=== PATIENT | female | born 1945 | race African-American/Black ===

== ENCOUNTER 2018-05-26 13:18 | Inpatient (IN) | payer OTHER ==
[~2018-05-26] VITALS: Ht 182.9 cm; Wt 81.7 kg
--- NOTE | ~2018-05-26 | EKG ---
[place] [address] [facility] [place] [address] ELECTROCARDIOGRAM REPORT Name: JAM PARK Room #: 170-12 ADM IN M.R.#: [id number] Admission: 05/26/18 Attend Phys: Getachew Mcguire MD Discharge: Date of : 41 Report #: [id number] THIS REPORT FOR: //name// [facility] ED Test Date: 2018-05-26 Test Time: 14:10:35 Pat Name: JAM PARK Department: Room: Gender: F Field Application Engineer: MICHAEL : 1945 Requested By: John Sellers Order Number: [id number] MD: Minh Lopez Measurements Intervals Portal Rate: 88 P: 50 AL: 132 QRS: -9 QRSD: 91 T: 132 QT: 363 QTc: 440 Interpretive Statements Sinus rhythm Atrial premature complexes LVH with secondary repolarization abnormality Anterior ST elevation, probably due to LVH No previous ECG available for comparison Electronically Signed On 05-26-2018 17:09:50 CDT by Minh Lopez [email or web address] <ELECTRONICALLY SIGNED> By: Minh Lopez MD, [facility] 05/26/18 1709 1410 1410 Minh Lopez MD, [facility] /EPI
--- NOTE | ~2018-05-26 | 2DMMODE ---
[facility] [address] [place] [address] 2 D/M-MODE ECHOCARDIOGRAM Name: JAM PARKERI Room #: 420-P [facility] IN M.R.#: [id number] Admission: 05/26/18 Attend Phys: Getachew Mcguire, Discharge: Date of : 41 Date of Service: 05/27/18 1057 Report #: [id number] THIS REPORT FOR: //name// APPROVED REPORT Study performed: 05/27/2018 10:08:31 EXAM: Comprehensive 2D, Doppler, and color-flow Echocardiogram Patient Location: Bedside Room #: 420 Status: routine BSA: 1.93 HR: 89 bpm BP: 143/82 mmHg Rhythm: Sinus arrhythmia Other Information Study Quality: Good Indications Murmur. Hx: DM, HTN 2D Dimensions RVDd: 37.52 mm LVEF(%): 58.75 (>50%) IVSd: 16.18 (7-11mm) LVOT Diam: 19.95 (18-24mm) LVDd: 36.50 mm PWd: 10.12 (7-11mm) Ascending Ao: 34.96 (22-36mm) LVDs: 25.39 (25-40mm) Aortic Root: 28.78 mm Pacheco's LVEF: 58.75 % Volumes Left Atrial Volume (Systole) Single Plane 4CH: 57.32 mL Single Plane 2CH: 66.43 mL LA ESV Index: 35.00 mL/m2 Aortic Valve AoV Peak Caden.: 3.82 m/s AO Peak Gr.: 58.49 mmHg LVOT Max P.07 mmHg AO Mean Gr.: 36.39 mmHg AO V2 Mean: 2.90 m/s LVOT Max V: 1.33 m/s AO V2 VTI: 77.24 cm GINA Vmax: 1.09 cm2 Mitral Valve [facility] [place] [address] 2 D/M-MODE ECHOCARDIOGRAM Name: JAM PARK KLAUS Room #: 420-P [facility].#: [id number] Admission: 05/26/18 Attend Phys: Getachew Mcguire, Discharge: Date of : 41 Date of Service: 05/27/18 1057 Report #: [id number] E/A Ratio: 0.8 MV Decel. Time: 216.78 ms MV E Max Caden.: 1.00 m/s MV A Caden.: 1.20 m/s MV PHT: 62.87 ms IVRT: 64.59 ms Pulmonary Valve PV Peak Caden.: 0.82 m/s PV Peak Gr.: 2.70 mmHg Pulmonary Vein P Vein S: 0.39 m/s P Vein A: 0.38 m/s P Vein D: 0.28 m/s P Vein A Dur.: 96.9 msec P Vein S/D Ratio: 1.39 Tricuspid Valve TR Peak Caden.: 3.18 m/s RAP Estimate: 5.00 mmHg TR Peak Gr.: 40.52 mmHg PA Pressure: 46.00 mmHg Left Ventricle The left ventricle is normal size. There is normal LV segmental wall motion. Mild to moderate left ventricular hypertrophy. Left ventricular systolic function is hyperdynamic. LVEF is 65-70%. Mild diastolic dysfunction is present (impaired relaxation pattern). Right Ventricle The right ventricle is normal size. The right ventricular systolic function is normal. Atria Left atrium is mildly dilated. Right atrium is mildly dilated. Aortic Valve Aortic valve is moderately calcified. Mild aortic regurgitation. There is moderate to severe valvular aortic stenosis. Calculated aortic valve area is 1.1 cm2 with maximum pressure gradient of 58 mmHg and mean pressure gradient of 34 mmHg. Mitral Valve Mitral valve leaflets are mildly thickened. Trace mitral regurgitation. No evidence of mitral valve stenosis. Tricuspid Valve [facility] [address] [place] [address] 2 D/M-MODE ECHOCARDIOGRAM Name: JAM PARKERI Room #: 420-P [facility] IN ..#: [id number] Admission: 05/26/18 Attend Phys: Getachew Mcguire, Discharge: Date of : 41 Date of Service: 05/27/18 1057 Report #: [id number] The tricuspid valve is normal in structure. Mild tricuspid regurgitation. Moderate pulmonary hypertension with an estimated PAP is 45-50mmHg. Pulmonic Valve The pulmonary valve is normal in structure. There is no pulmonic valvular regurgitation. Great Vessels The aortic root is normal in size. The ascending aorta is normal in size. IVC is normal in size and collapses >50% with inspiration. Pericardium There is no pericardial effusion. <Conclusion> The left ventricle is normal size. LVEF is 65-70%. Left atrium is mildly dilated. Right atrium is mildly dilated. Aortic valve is moderately calcified. Mild aortic regurgitation. There is moderate to severe valvular aortic stenosis. Calculated aortic valve area is 1.1 cm2 with maximum pressure gradient of 58 mmHg and mean pressure gradient of 34 mmHg. Mitral valve leaflets are mildly thickened. Trace mitral regurgitation. The tricuspid valve is normal in structure. Mild tricuspid regurgitation. Moderate pulmonary hypertension with an estimated PAP is 45-50mmHg. The pulmonary valve is normal in structure. There is no pericardial effusion. <ELECTRONICALLY SIGNED> By: Daniele Lindo MD 05/27/18 1057 1057 1057 Daniele Lindo MD /INF
[2018-05-26 13:19] VITALS: BP 126/62
[2018-05-26 14:00] LABS: URINE BILIRUBIN NEGATIVE (Negative); URINE BLOOD 1+ (Negative); URINE CLARITY CLOUDY; URINE COLOR YELLOW; URINE GLUCOSE-RANDOM* 3+ (Negative); URINE KETONES 1+ (Negative); URINE NITRITE-REFLEX NEGATIVE (Negative); URINE PROTEIN (DIPSTICK) 1+ (Negative); URINE UROBILINOGEN 0.2 E.U./dl (0.2-1.0)
[2018-05-26 14:02] LABS: URINE LEUKOCYTES-REFLEX 1+ (Negative)
[2018-05-26 14:08] LABS: BACTERIA-REFLEX >30 Many /HPF (None Seen); CASTS None Seen /LPF (None Seen); CRYSTALS None Seen /LPF (None Seen); SQUAMOUS 0-3 Few /LPF (0-3); URINE RBC 0-2 Rare /HPF (0-2)
[2018-05-26 14:22] LABS: ABSOLUTE NEUTROPHILS 14.2 thou/uL (1.4-8.2); BASOPHILS 0.2 % (0.0-2.0); HEMATOCRIT 38.4 % (37.0-47.0); HEMOGLOBIN 12.9 gm/dL (12.0-15.0); LYMPHOCYTES 5.3 % (24.0-44.0); MCH 26.4 pg (26.0-34.0); MCHC 33.6 g/dL (28.0-37.0); MCV 78.7 fL (80.0-100.0); MONOCYTES 8.8 % (1.0-8.0); PLATELET COUNT 217 thou/uL (150-400); POLYS 85.7 % (36.0-66.0); RBC 4.88 mil/uL (4.20-5.00); RDW 13.6 % (10.5-14.5); WBC 16.6 thou/uL (4.0-11.0)
[2018-05-26 14:31] LABS: CALCIUM 9.3 mg/dL (8.5-10.1); CREATININE 1.2 mg/dL (0.6-1.0); POTASSIUM 3.5 mmol/L (3.5-5.1)
[2018-05-26 14:37] LABS: ALBUMIN 2.6 g/dL (3.4-5.0); DIRECT BILIRUBIN 0.1 mg/dL (<0.1-0.3); TOTAL BILIRUBIN 0.4 mg/dL (<0.1-1.0); TOTAL PROTEIN 8.4 g/dL (6.4-8.2)
[2018-05-26] MEDS ORDERED: METFORMIN HCL500 MG PO (15:56)
[2018-05-26] MEDS ORDERED: COZAAR 25 MG TA25 M1 PO (15:56)
[2018-05-26] MEDS ORDERED: HYDROCHLOROTH12.5 M1 PO (15:56)
[2018-05-26 16:29] VITALS: BP 126/62
[2018-05-26 16:30] VITALS: BP 150/65
[2018-05-26 16:56] LABS: CALCIUM 8.8 mg/dL (8.5-10.1)
[2018-05-26 17:01] VITALS: BP 134/79
[2018-05-26 17:01] LABS: % SATURATION 7 % (20-39); IRON 12 ug/dL (50-170); TIBC 172 ug/dL (250-450)
[2018-05-26 17:02] LABS: ALBUMIN 2.1 g/dL (3.4-5.0); TOTAL PROTEIN 7.5 g/dL (6.4-8.2)
[2018-05-26 17:26] LABS: TSH 1.498 uIU/mL (0.358-3.740)
[2018-05-26 18:02] VITALS: BP 140/74
[2018-05-26 19:22] VITALS: BP 150/65
[2018-05-26 23:25] LABS: CALCIUM 8.8 mg/dL (8.5-10.1); POTASSIUM 3.4 mmol/L (3.5-5.1)
[2018-05-27 03:10] VITALS: BP 147/74
[2018-05-27 05:17] LABS: HEMATOCRIT 34.4 % (37.0-47.0); HEMOGLOBIN 11.5 gm/dL (12.0-15.0); MCH 26.1 pg (26.0-34.0); MCHC 33.6 g/dL (28.0-37.0); MCV 77.8 fL (80.0-100.0); RBC 4.42 mil/uL (4.20-5.00); RDW 13.4 % (10.5-14.5); WBC 16.4 thou/uL (4.0-11.0)
[2018-05-27 05:28] LABS: CALCIUM 8.6 mg/dL (8.5-10.1); CREATININE 1.1 mg/dL (0.6-1.0); MAGNESIUM 1.5 mg/dL (1.8-2.4); POTASSIUM 3.4 mmol/L (3.5-5.1)
[2018-05-27 06:08] LABS: GLYCOHEMOGLOBIN (HGB A1C) 9.9 % (4.8-5.6)
[2018-05-27 08:30] VITALS: BP 143/82
[2018-05-27 16:35] VITALS: BP 136/97
[2018-05-27 19:32] VITALS: BP 127/64
[2018-05-28 04:10] VITALS: BP 119/72
[2018-05-28 05:56] LABS: HEMOGLOBIN 11.1 gm/dL (12.0-15.0); MCH 26.5 pg (26.0-34.0); MCHC 33.7 g/dL (28.0-37.0); MCV 78.5 fL (80.0-100.0); RBC 4.2 mil/uL (4.20-5.00); RDW 13.9 % (10.5-14.5); WBC 14.1 thou/uL (4.0-11.0)
[2018-05-28 06:13] LABS: ALBUMIN 1.9 g/dL (3.4-5.0); CALCIUM 8.5 mg/dL (8.5-10.1); CREATININE 0.9 mg/dL (0.6-1.0); PHOSPHORUS 2.2 mg/dL (2.5-4.9); POTASSIUM 3.5 mmol/L (3.5-5.1)
[2018-05-28 08:14] VITALS: BP 127/63
[2018-05-28 10:58] VITALS: BP 127/63
[2018-05-28 16:25] VITALS: BP 132/58
[2018-05-28 20:09] VITALS: BP 124/65
[2018-05-29 05:03] VITALS: BP 140/65
[2018-05-29 06:17] LABS: HEMOGLOBIN 11.3 gm/dL (12.0-15.0); MCHC 33.2 g/dL (28.0-37.0); MCV 78.3 fL (80.0-100.0); RBC 4.34 mil/uL (4.20-5.00); RDW 13.8 % (10.5-14.5); WBC 12.9 thou/uL (4.0-11.0)
[2018-05-29 06:39] LABS: CALCIUM 8.5 mg/dL (8.5-10.1); CREATININE 0.8 mg/dL (0.6-1.0); MAGNESIUM 1.8 mg/dL (1.8-2.4); POTASSIUM 3.5 mmol/L (3.5-5.1)
[2018-05-29 07:32] VITALS: BP 134/72
[2018-05-29 15:27] VITALS: BP 117/57
[2018-05-29 19:20] VITALS: BP 114/48
[2018-05-30 04:10] VITALS: BP 127/65
[2018-05-30 05:49] LABS: HEMATOCRIT 32.4 % (37.0-47.0); HEMOGLOBIN 10.7 gm/dL (12.0-15.0); MCH 25.7 pg (26.0-34.0); MCHC 33.1 g/dL (28.0-37.0); MCV 77.7 fL (80.0-100.0); RBC 4.17 mil/uL (4.20-5.00); RDW 14.4 % (10.5-14.5); WBC 13.6 thou/uL (4.0-11.0)
[2018-05-30 05:55] LABS: ALBUMIN 1.6 g/dL (3.4-5.0); CALCIUM 8.3 mg/dL (8.5-10.1); CREATININE 0.7 mg/dL (0.6-1.0); PHOSPHORUS 3.4 mg/dL (2.5-4.9); POTASSIUM 3.8 mmol/L (3.5-5.1)
[2018-05-30 07:41] VITALS: BP 150/68
[2018-05-30 19:45] VITALS: BP 136/75
[2018-05-31 04:20] VITALS: BP 136/65
[2018-05-31 08:00] VITALS: BP 147/66
[2018-05-31] MEDS ORDERED: CIPRO500 MG PO (09:11)
[2018-05-31] MEDS ORDERED: LISINOPRIL5 MG PO (09:11)
[2018-05-31] MEDS ORDERED: ASPIRIN325 PO (09:12)
[2018-05-31] MEDS ORDERED: PEPCID20 MG PO (09:12)
[2018-05-31] MEDS ORDERED: GLUCOPHAGE500 MG PO (09:12)
[2018-05-31] MEDS ORDERED: GLYBURIDE 5 MG T5 M1 PO (09:12)
[2018-05-31] MEDS ORDERED: TOPROL XL100 MG PO (09:16)
[2018-05-31 09:52] VITALS: BP 147/66
== END 2018-05-31 11:52 | disposition home or self-care (01) | DRG 872 ==
LOC: ER 13:18 → EROBS 15:18 → 4E 15:18 → ENTRNSPT 05-31 10:52 → 4E 05-31 11:52
PROVIDERS: Emergency Medicine; Hospitalist; Internal Medicine; Nurse Practitioner Acute Care
DX: A41.9 Sepsis, unspecified organism (principal); N17.9 Acute kidney failure, unspecified; E87.1 Hypo-osmolality and hyponatremia; E44.0 Moderate protein-calorie malnutrition; N10 Acute pyelonephritis; I35.0 Nonrheumatic aortic (valve) stenosis; E11.22 Type 2 diabetes mellitus with diabetic chronic kidney disease; K59.00 Constipation, unspecified; E11.649 Type 2 diabetes mellitus with hypoglycemia without coma; I09.9 Rheumatic heart disease, unspecified; I12.9 Hypertensive chronic kidney disease with stage 1 through stage 4 chronic kidney disease, or unspecified chronic kidney disease; N18.9 Chronic kidney disease, unspecified; Z79.84 Long term (current) use of oral hypoglycemic drugs; Z88.0 Allergy status to penicillin; Z68.24 Body mass index [BMI] 24.0-24.9, adult
CPT/HCPCS: 10183

== ENCOUNTER 2018-06-30 11:10 | Emergency (ER) | payer OTHER ==
[~2018-06-30] VITALS: Ht 170.2 cm; Wt 86.2 kg
--- NOTE | ~2018-06-30 | EKG ---
[place] [address] [facility] [place] [address] ELECTROCARDIOGRAM REPORT Name: JAM PARK Room #: [facility]#: [id number] Admission: 06/30/18 Attend Phys: Discharge: 06/30/18 Date of : 41 Report #: [id number] THIS REPORT FOR: //name// [facility] [place] [place] ED Test Date: 2018-06-30 Test Time: 11:42:52 Pat Name: JAM PARK Department: Room: Gender: F Signal Helper: : 1945 Requested By: John Sellers Order Number: [id number] MD: Minh Lopez Measurements Intervals [place] Rate: 73 P: 49 PA: 142 QRS: -8 QRSD: 88 T: -7 QT: 382 QTc: 421 Interpretive Statements Sinus rhythm Left ventricular hypertrophy Anterior Q waves, possibly due to LVH Borderline T abnormalities Compared to ECG 05/26/2018 14:10:[address] and T wave abnormality less pronounced Atrial premature complex(es) no longer present Electronically Signed On 06-30-2018 16:59:53 CDT by Minh Lopez [email or web address] <ELECTRONICALLY SIGNED> By: Minh Lopez MD, [facility] 06/30/18 1659 1142 1142 Minh Lopez MD, [facility] /EPI
[~2018-06-30 11:10] MED LIST: ASPIRIN325 PO; CIPRO500 MG PO; COZAAR 25 MG TA25 M1 PO; GLUCOPHAGE500 MG PO; GLYBURIDE 5 MG T5 M1 PO; HYDROCHLOROTH12.5 M1 PO; LISINOPRIL5 MG PO; METFORMIN HCL500 MG PO; PEPCID20 MG PO; TOPROL XL100 MG PO
[2018-06-30 11:55] LABS: ABSOLUTE NEUTROPHILS 7.8 thou/uL (1.4-8.2); BASOPHILS 0.5 % (0.0-2.0); EOSINOPHILS 0.3 % (0.0-3.0); HEMATOCRIT 36.8 % (37.0-47.0); HEMOGLOBIN 12.1 gm/dL (12.0-15.0); LYMPHOCYTES 14.7 % (24.0-44.0); MCV 78.9 fL (80.0-100.0); MONOCYTES 9.6 % (1.0-8.0); PLATELET COUNT 231 thou/uL (150-400); POLYS 74.9 % (36.0-66.0); RBC 4.66 mil/uL (4.20-5.00); WBC 10.4 thou/uL (4.0-11.0)
[2018-06-30 11:57] LABS: ANION GAP 10 mmol/L (7-16); BUN 9 mg/dL (7-18); CALCIUM 9.1 mg/dL (8.5-10.1); CHLORIDE 93 mmol/L (98-107); CO2 23 mmol/L (21-32); GLUCOSE 481 mg/dL (74-106); POTASSIUM 4.2 mmol/L (3.5-5.1); SODIUM 126 mmol/L (136-145)
[2018-06-30 12:06] LABS: ALBUMIN 2.9 g/dL (3.4-5.0); LIPASE 55 U/L (73-393); SGOT 19 U/L (15-37); SGPT 28 U/L (30-65); TOTAL BILIRUBIN 0.4 mg/dL (<0.1-1.0); TOTAL PROTEIN 8.3 g/dL (6.4-8.2); TROPONIN-I <0.06 ng/mL (<0.06)
[2018-06-30 12:19] LABS: BE(vivo) -1.4 mmol/L (-2 to +3); HCO3 23.8 mmol/L (22.0-26.0); PCO2 VENOUS 41.5 mmHg (41.0-51.0); PO2 VENOUS 48.7 mmHg (35.0-45.0)
[2018-06-30 13:28] LABS: URINE CLARITY CLOUDY; URINE COLOR YELLOW
[2018-06-30 13:29] LABS: URINE GLUCOSE-RANDOM* 2+ (Negative); URINE PROTEIN (DIPSTICK) 1+ (Negative)
[2018-06-30 13:30] LABS: URINE BILIRUBIN NEGATIVE (Negative); URINE BLOOD 2+ (Negative); URINE KETONES NEGATIVE (Negative); URINE LEUKOCYTES-REFLEX 2+ (Negative); URINE NITRITE-REFLEX NEGATIVE (Negative); URINE UROBILINOGEN 0.2 E.U./dl (0.2-1.0)
[2018-06-30 13:40] LABS: BACTERIA-REFLEX 1-9 Few /HPF (None Seen); CASTS None Seen /LPF (None Seen); CRYSTALS None Seen /LPF (None Seen); SQUAMOUS None Seen /LPF (0-3); URINE RBC 0-2 Rare /HPF (0-2); URINE WBC-REFLEX >25 Many /HPF (0-5)
[2018-06-30] MEDS ORDERED: LEVAQUIN 500 M500 M2 PO (13:52)
[2018-06-30] MEDS ORDERED: GLYBURIDE 2.52.5 MG PO (13:52)
== END 2018-06-30 15:30 | disposition home or self-care (01) ==
LOC: ER 11:10
PROVIDERS: Physician Assistant
DX: K59.00 Constipation, unspecified (principal); N39.0 Urinary tract infection, site not specified; I10 Essential (primary) hypertension; E11.65 Type 2 diabetes mellitus with hyperglycemia; Z88.0 Allergy status to penicillin